=== PATIENT | male | born 1980 | race Caucasian/White ===

== ENCOUNTER 2016-09-04 13:06 | Emergency (ER) | payer MEDICARE, MEDICAID ==
[~2016-09-04] VITALS: Ht 172.7 cm; Wt 101.6 kg
[~2016-09-04 13:06] MED LIST: ALLO100T30 PO; AMOX1TAB12 PO; ARIP5TAB6 PO; CIPR500T3 PO; CYCL10TA50 PO; DIPH1TAB PO; DIPH25CA61 PO; DIVA250T PO; FLUO40CA2 PO; IBUP200T48 PO; IMIP50TA3 PO; LEVO7.5T PO; LISI-170 PO; MELO-184 PO; METO25TA91 PO; MOME13HF; MOME13HF INH; NITR50CA PO; OMEP-110 PO; PRAV40TA2 PO; PROM12.554 PR; QUET100T PO; SITA1TBM4 PO; VALP250C PO
[2016-09-04] MEDS ORDERED: TRAM50TA2 PO (13:39)
[2016-09-04] MEDS ORDERED: SUMA100T3 PO (13:39)
[2016-09-04] MEDS ORDERED: METO25TA91 PO (13:40)
[2016-09-04] MEDS ORDERED: SODIUM CHLORIDE FLUSH 10ML SYR IVF ONE (14:00)
[2016-09-04 14:19] LABS: ASPARTATE AMINO TRANSFERASE 11 U/L (15-37); BLOOD UREA NITROGEN 27 mg/dL (7-18)
[2016-09-04 14:25] LABS: IS PT STATUS REG ER OR PRE ER? YES
[2016-09-04] MEDS ORDERED: KETOROLAC 30 MG/1 ML IVPush ONE (16:00)
[2016-09-04] MEDS ORDERED: KETOROLAC 30 MG/1 ML ONE (16:13)
[2016-09-04] MEDS ORDERED: OMNIPAQUE 350 MG/ML, 100ML BOTTLE ONE (16:27)
[2016-09-04 16:31] VITALS: BP 139/86
== END 2016-09-04 17:27 | disposition home or self-care (01) ==
LOC: ED 17:25
DX: S29.011A Strain of muscle and tendon of front wall of thorax, initial encounter (principal); M94.0 Chondrocostal junction syndrome [Tietze]; I10 Essential (primary) hypertension; E11.9 Type 2 diabetes mellitus without complications; X58.XXXA Exposure to other specified factors, initial encounter; Y93.89 Activity, other specified; Y92.89 Other specified places as the place of occurrence of the external cause; Y99.9 Unspecified external cause status
CPT/HCPCS: 36415; 71020; 71275; 80053; 84484; 85025; 85379; 85610; 85730; 93005; 96374; 99285; J1885; Q9967

== ENCOUNTER 2016-12-12 21:12 | Emergency (ER) | payer MEDICARE, MEDICAID ==
[~2016-12-12] VITALS: Ht 175.3 cm; Wt 98.0 kg
[~2016-12-12 21:12] MED LIST changes: +SUMA100T3 PO; +TRAM50TA2 PO
[2016-12-12 21:14] VITALS: BP 140/99
[2016-12-12 22:08] LABS: PATH.CAST-FLAG NOT PRESENT; SPERM-FLAG NOT PRESENT; SRC-FLAG NOT PRESENT; XTAL-FLAG NOT PRESENT; YLC-FLAG NOT PRESENT
== END 2016-12-12 22:33 | disposition home or self-care (01) ==
LOC: ED 22:20
DX: R33.9 Retention of urine, unspecified (principal); J44.9 Chronic obstructive pulmonary disease, unspecified; E11.9 Type 2 diabetes mellitus without complications; I10 Essential (primary) hypertension
CPT/HCPCS: 81001; 87086; 99284

== ENCOUNTER 2017-02-19 12:59 | Emergency (ER) | payer MEDICARE, MEDICAID ==
[~2017-02-19] VITALS: Ht 172.7 cm; Wt 103.0 kg
[~2017-02-19 12:59] MED LIST changes: +ARIP5TAB13 PO; -ARIP5TAB6 PO; -MELO-184 PO; +MELO15TA24 PO
[2017-02-19 13:02] VITALS: BP 146/96
== END 2017-02-19 15:34 | disposition home or self-care (01) ==
LOC: ED 14:26
DX: N30.00 Acute cystitis without hematuria (principal); J44.9 Chronic obstructive pulmonary disease, unspecified; G40.909 Epilepsy, unspecified, not intractable, without status epilepticus; E78.00 Pure hypercholesterolemia, unspecified; E11.65 Type 2 diabetes mellitus with hyperglycemia; I11.0 Hypertensive heart disease with heart failure; I50.9 Heart failure, unspecified
CPT/HCPCS: 51701; 81001; 87086; 99284; P9612

== ENCOUNTER 2017-02-24 20:20 | Emergency (ER) | payer MEDICARE, MEDICAID ==
[~2017-02-24] VITALS: Ht 172.7 cm; Wt 103.3 kg
[2017-02-24 21:16] VITALS: BP 135/74
== END 2017-02-24 21:20 | disposition home or self-care (01) ==
LOC: ED 21:10
DX: R30.0 Dysuria (principal); J44.9 Chronic obstructive pulmonary disease, unspecified; E11.9 Type 2 diabetes mellitus without complications; E78.5 Hyperlipidemia, unspecified; I10 Essential (primary) hypertension; Z86.711 Personal history of pulmonary embolism
CPT/HCPCS: 99281

== ENCOUNTER 2017-03-13 22:42 | Emergency (ER) | payer MEDICARE, MEDICAID ==
[~2017-03-13] VITALS: Ht 175.3 cm; Wt 103.0 kg
[2017-03-13 22:48] VITALS: BP 154/103
== END 2017-03-13 23:24 | disposition home or self-care (01) ==
LOC: ED 23:03
DX: R46.89 Other symptoms and signs involving appearance and behavior (principal); J44.9 Chronic obstructive pulmonary disease, unspecified; E11.9 Type 2 diabetes mellitus without complications; E78.5 Hyperlipidemia, unspecified; I10 Essential (primary) hypertension; Z86.711 Personal history of pulmonary embolism
CPT/HCPCS: 99283

== ENCOUNTER 2017-09-28 21:47 | Observation (INO) | payer MEDICARE, MEDICAID ==
[~2017-09-28] VITALS: Ht 175.3 cm; Wt 103.0 kg
[~2017-09-28 21:47] MED LIST changes: -IBUP200T48 PO; +IBUP200T49 PO
[2017-09-28] MEDS ORDERED: DIVA500T17 PO (22:02)
[2017-09-28 22:34] LABS: BASOPHILS # (AUTO) 0.02 x10^3/uL (0-0.1); BASOPHILS % (AUTO) 0 % (0-1); EOSINOPHILS # (AUTO) 0.07 x10^3/uL (0-0.4); EOSINOPHILS % (AUTO) 1 % (1-7); LYMPHOCYTES % (AUTO) 23 % (22-44); MD NO; MEAN CORPUSCULAR HGB CONC 33.9 g/dL (33.2-36.2); MEAN CORPUSCULAR VOLUME 88.4 fL (81-97); MEAN PLATELET VOLUME 7.9 fL (7.4-10.4); MONOCYTES # (AUTO) 0.87 x10^3/uL (0.2-0.8); MONOCYTES % (AUTO) 10 % (2-9); NEUTROPHILS # (AUTO) 5.48 x10^3/uL (1.8-6.8); NEUTROPHILS % (AUTO) 66 % (42-75); PLATELET COUNT 269 x10^3/uL (130-400); RED BLOOD COUNT 4.97 x10^6/uL (4.38-5.82); RED CELL DISTRIBUTION WIDTH 14.9 % (9.4-14.8)
[2017-09-28 22:41] LABS: ALBUMIN 3.7 g/dL (3.4-5.0); ANION GAP 10 mmol/L (5-15); CALCIUM 8.2 mg/dL (8.5-10.1); CHLORIDE 102 mmol/L (98-107); CREATININE 1.11 mg/dL (0.7-1.3)
[2017-09-28 22:42] LABS: SALICYLATE LEVEL < 1.7 mg/dL (2.8-20.0)
[2017-09-28 22:43] LABS: ACETAMINOPHEN < 2 mcg/mL (10-30)
[2017-09-28 23:23] LABS: AMPHETAMINE SCREEN, URINE Negative (Negative); BARBITURATE SCREEN, URINE Negative (Negative); BENZODIAZEPINE SCREEN, URINE Negative (Negative); CANNABINOID SCREEN, URINE Negative (Negative); COCAINE SCREEN, URINE Negative (Negative); METHADONE SCREEN, URINE Negative (Negative); OPIATE SCREEN, URINE Negative (Negative)
[2017-09-29] MEDS ORDERED: ONDANSETRON ODT 4 MG PO PRN (00:30)
[2017-09-29] MEDS ORDERED: DOCUSATE 100 MG CAPSULE PO PRN (00:30)
[2017-09-29] MEDS ORDERED: METOPROLOL SUCCINATE 25 MG TAB.ER.24H PO PRN (00:30)
[2017-09-29] MEDS ORDERED: DIPHENHYDRAMINE 50 MG CAPSULE PO PRN (00:30)
[2017-09-29] MEDS ORDERED: ACETAMINOPHEN 325 MG TABLET PO PRN (00:30)
[2017-09-29] MEDS: INSULIN LISPRO 100 UNITS/ML, PEN SQ-INSULIN SCH ×4 (07:00→21:00)
[2017-09-29 07:20] VITALS: BP 137/82
[2017-09-29] MEDS: metFORMIN 500 MG TABLET PO SCH ×2 (07:36→16:26)
[2017-09-29] MEDS: DIVALPROEX 500 MG TAB.ER.24H PO SCH ×2 (07:36→21:25)
[2017-09-29] MEDS: QUETIAPINE 100MG TABLET PO SCH (07:37)
[2017-09-29] MEDS: FLUOXETINE HCL 20 MG CAPSULE PO SCH (07:37)
[2017-09-29] MEDS: SITAGLIPTIN 50MG TABLET PO SCH ×2 (07:37→16:26)
[2017-09-29] MEDS: FLUTICASONE/VILANTEROL 200-25MCG/INH INH SCH (08:32)
[2017-09-29] MEDS ORDERED: SITAGLIPTIN 50MG TABLET PO SCH (09:00)
[2017-09-29 19:12] VITALS: BP 127/91
[2017-09-29 21:37] LABS: CLOSTRIDIUM DIFFICILE ANTIGEN NEGATIVE; CLOSTRIDIUM DIFFICILE TOXIN NEGATIVE (Negative)
[2017-09-30] MEDS: INSULIN LISPRO 100 UNITS/ML, PEN SQ-INSULIN SCH ×2 (07:00→11:00)
[2017-09-30 07:58] VITALS: BP 139/92
[2017-09-30] MEDS: FLUTICASONE/VILANTEROL 200-25MCG/INH INH SCH (07:58)
[2017-09-30] MEDS: DIVALPROEX 500 MG TAB.ER.24H PO SCH (07:59)
[2017-09-30] MEDS: QUETIAPINE 100MG TABLET PO SCH (07:59)
[2017-09-30] MEDS: metFORMIN 500 MG TABLET PO SCH (07:59)
[2017-09-30] MEDS: SITAGLIPTIN 50MG TABLET PO SCH (07:59)
[2017-09-30] MEDS: FLUOXETINE HCL 20 MG CAPSULE PO SCH (07:59)
== END 2017-09-30 16:45 ==
LOC: ED 22:45 → SUATTDRO 09-29 00:19 → INTOOBSV 09-29 01:31 → EDIP 09-29 01:31 → 3E 09-29 01:33
PROVIDERS: ADMIT Family Medicine; ATTEND Family Medicine
DX: F32.9 Major depressive disorder, single episode, unspecified (principal); I10 Essential (primary) hypertension; N31.9 Neuromuscular dysfunction of bladder, unspecified; K21.9 Gastro-esophageal reflux disease without esophagitis; F09 Unspecified mental disorder due to known physiological condition; E78.5 Hyperlipidemia, unspecified; E11.9 Type 2 diabetes mellitus without complications; G40.909 Epilepsy, unspecified, not intractable, without status epilepticus; J44.9 Chronic obstructive pulmonary disease, unspecified; M10.9 Gout, unspecified
CPT/HCPCS: 36415; 80048; 80307; 80329; 82040; 82962; 85025; 87324; 99285; G0378; G0480

== ENCOUNTER 2017-11-28 14:38 | Emergency (ER) | payer MEDICARE, MEDICAID ==
[~2017-11-28] VITALS: Ht 175.3 cm; Wt 97.7 kg
[~2017-11-28 14:38] MED LIST changes: +DIVA500T17 PO
[2017-11-28] MEDS ORDERED: ASPIRIN 81 MG TABLET CHEW PO ONE (15:00)
[2017-11-28] MEDS ORDERED: NITROGLYCERIN SINGLE TAB 0.4 MG SL PRN (15:00)
[2017-11-28 15:18] LABS: ALANINE AMINOTRANSFERASE 40 U/L (12-78); ANION GAP 9 mmol/L (5-15); CHLORIDE 103 mmol/L (98-107); CREATININE 1.28 mg/dL (0.7-1.3)
[2017-11-28 15:23] LABS: ALKALINE PHOSPHATASE 58 U/L (45-117); BILIRUBIN,TOTAL 0.4 mg/dL (0.2-1.0); TOTAL PROTEIN 8.1 g/dL (6.4-8.2); TROPONIN I < 0.015 ng/mL (0.000-0.045)
[2017-11-28 16:01] LABS: BASOPHILS # (AUTO) 0.04 x10^3/uL (0-0.1); BASOPHILS % (AUTO) 0 % (0-1); EOSINOPHILS # (AUTO) 0.17 x10^3/uL (0-0.4); EOSINOPHILS % (AUTO) 2 % (1-7); LYMPHOCYTES # (AUTO) 1.73 x10^3/uL (1-3.4); LYMPHOCYTES % (AUTO) 17 % (22-44); MD SCAN; MEAN CORPUSCULAR HEMOGLOBIN 30.4 pg (27.5-34.5); MEAN CORPUSCULAR HGB CONC 34.3 g/dL (33.2-36.2); MEAN CORPUSCULAR VOLUME 88.4 fL (81-97); MEAN PLATELET VOLUME 8.8 fL (7.4-10.4); MONOCYTES # (AUTO) 0.82 x10^3/uL (0.2-0.8); MONOCYTES % (AUTO) 8 % (2-9); NEUTROPHILS # (AUTO) 7.22 x10^3/uL (1.8-6.8); NEUTROPHILS % (AUTO) 72 % (42-75); PLATELET COUNT 213 x10^3/uL (130-400); RED BLOOD COUNT 5.02 x10^6/uL (4.38-5.82); RED CELL DISTRIBUTION WIDTH 14.4 % (9.4-14.8)
[2017-11-28] MEDS ORDERED: ASPIRIN 81 MG TABLET CHEW ONE (16:57)
[2017-11-28] MEDS ORDERED: OMNIPAQUE 350 MG/ML, 100ML BOTTLE ONE (18:22)
[2017-11-28 18:38] VITALS: BP 137/91
== END 2017-11-28 19:27 | disposition home or self-care (01) ==
LOC: ED 18:45
DX: R07.89 Other chest pain (principal); G40.909 Epilepsy, unspecified, not intractable, without status epilepticus; J44.9 Chronic obstructive pulmonary disease, unspecified; I10 Essential (primary) hypertension; E11.65 Type 2 diabetes mellitus with hyperglycemia; E78.5 Hyperlipidemia, unspecified; Z86.711 Personal history of pulmonary embolism
CPT/HCPCS: 36415; 71045; 71275; 80053; 84484; 85025; 93005; 99285; Q9967

== ENCOUNTER 2018-05-03 21:42 | Emergency (ER) | payer MEDICARE, MEDICAID ==
[~2018-05-03] VITALS: Ht 175.3 cm; Wt 102.0 kg
[2018-05-03 22:24] LABS: BASOPHILS # (AUTO) 0.03 x10^3/uL (0-0.1); BASOPHILS % (AUTO) 1 % (0-1); EOSINOPHILS # (AUTO) 0.17 x10^3/uL (0-0.4); EOSINOPHILS % (AUTO) 3 % (1-7); LYMPHOCYTES # (AUTO) 1.36 x10^3/uL (1-3.4); LYMPHOCYTES % (AUTO) 20 % (22-44); MD NO; MEAN CORPUSCULAR HEMOGLOBIN 30.5 pg (27.5-34.5); MEAN CORPUSCULAR HGB CONC 34.4 g/dL (33.2-36.2); MEAN CORPUSCULAR VOLUME 88.6 fL (81-97); MEAN PLATELET VOLUME 7.5 fL (7.4-10.4); MONOCYTES # (AUTO) 0.53 x10^3/uL (0.2-0.8); MONOCYTES % (AUTO) 8 % (2-9); NEUTROPHILS # (AUTO) 4.63 x10^3/uL (1.8-6.8); NEUTROPHILS % (AUTO) 69 % (42-75); PLATELET COUNT 260 x10^3/uL (130-400); RED BLOOD COUNT 4.53 x10^6/uL (4.38-5.82); RED CELL DISTRIBUTION WIDTH 14.3 % (9.4-14.8)
[2018-05-03 22:31] LABS: ALANINE AMINOTRANSFERASE 28 U/L (12-78); ALBUMIN 3.4 g/dL (3.4-5.0); ANION GAP 7 mmol/L (5-15); CALCIUM 8.2 mg/dL (8.5-10.1); CHLORIDE 104 mmol/L (98-107); CREATININE 1.04 mg/dL (0.7-1.3)
[2018-05-03 22:34] LABS: ALKALINE PHOSPHATASE 54 U/L (45-117); BILIRUBIN,TOTAL 0.3 mg/dL (0.2-1.0); TOTAL PROTEIN 6.9 g/dL (6.4-8.2)
--- NOTE | 2018-05-03 22:36 | NUR ---
RESTING QUIETLY, NAD AT THIS TIME AND PT HAS NO COMPLAINTS, SIDE RAILS UP TIMES TWO, CALL DO IN REACH AND AWARE OF USE AND MORE WARM BLANKETS GIVEN
--- NOTE | 2018-05-03 23:03 | NUR ---
MD NOTES GUIAC NEGATIVE AND NOTED SMALL HEMMORHOID.
[2018-05-03 23:21] VITALS: BP 116/73
--- NOTE | 2018-05-03 23:32 | NUR ---
[facility]AY CALLED PER PT REQUEST, AWARE OF FINDINGS AND ARE ON THE WAY TO PICK PT UP.
== END 2018-05-03 23:38 | disposition home or self-care (01) ==
LOC: ED 22:33
DX: K62.5 Hemorrhage of anus and rectum (principal); I10 Essential (primary) hypertension; E11.9 Type 2 diabetes mellitus without complications
CPT/HCPCS: 36415; 80053; 85025; 93005; 99284

== ENCOUNTER 2018-06-02 20:13 | Emergency (ER) | payer MEDICARE, MEDICAID ==
[~2018-06-02] VITALS: Ht 175.3 cm; Wt 95.0 kg
--- NOTE | 2018-06-02 20:27 | NUR ---
assessment made. chart up for MD to see.
--- NOTE | 2018-06-02 20:31 | NUR ---
Dr. Watts at bedside to evaluate pt.
--- NOTE | 2018-06-02 20:31 | NUR ---
SBAR report received from RN, Damian.
--- NOTE | 2018-06-02 20:43 | NUR ---
RN in to ask pt if he can provide urine sample. Pt states that he has a neurogenic bladder and self caths at home. Pt to imaging at this time, via anne. This RN to straight cath pt for urine sample upon return.
[2018-06-02 21:46] LABS: BASOPHILS % (AUTO) 0 % (0-1); EOSINOPHILS # (AUTO) 0.18 x10^3/uL (0-0.4); EOSINOPHILS % (AUTO) 3 % (1-7); LYMPHOCYTES # (AUTO) 1.68 x10^3/uL (1-3.4); LYMPHOCYTES % (AUTO) 29 % (22-44); MD NO; MEAN CORPUSCULAR HEMOGLOBIN 29.7 pg (27.5-34.5); MEAN CORPUSCULAR HGB CONC 33.6 g/dL (33.2-36.2); MEAN CORPUSCULAR VOLUME 88.3 fL (81-97); MEAN PLATELET VOLUME 7.9 fL (7.4-10.4); MONOCYTES # (AUTO) 0.76 x10^3/uL (0.2-0.8); MONOCYTES % (AUTO) 13 % (2-9); NEUTROPHILS # (AUTO) 3.21 x10^3/uL (1.8-6.8); NEUTROPHILS % (AUTO) 55 % (42-75); PLATELET COUNT 236 x10^3/uL (130-400); RED BLOOD COUNT 4.41 x10^6/uL (4.38-5.82)
[2018-06-02 21:49] LABS: ALBUMIN 3.6 g/dL (3.4-5.0); ANION GAP 10 mmol/L (5-15); CALCIUM 8.6 mg/dL (8.5-10.1); CHLORIDE 106 mmol/L (98-107)
[2018-06-02 21:52] LABS: ALANINE AMINOTRANSFERASE 26 U/L (12-78); ALKALINE PHOSPHATASE 49 U/L (45-117); BILIRUBIN,TOTAL 0.4 mg/dL (0.2-1.0); CREATININE 1.04 mg/dL (0.7-1.3); TOTAL PROTEIN 6.8 g/dL (6.4-8.2)
--- NOTE | 2018-06-02 21:54 | NUR ---
Dr. Watts at bedside to discuss ED findings and POC.
--- NOTE | 2018-06-02 21:55 | NUR ---
Straight cath performed for urine sample, pt tolerated the procedure well. Sample walked to lab.
[2018-06-02 22:07] LABS: CULTURE INDICATED? YES; MICROSCOPIC INDICATED
--- NOTE | 2018-06-02 22:28 | NUR ---
Pt requesting that d/c information be repeated when caregiver arrives.
[2018-06-02] MEDS ORDERED: FOSFOMYCIN 3 GM PACKET PO ONE (22:30)
--- NOTE | 2018-06-02 22:30 | NUR ---
Caregiver, and ride home, called as pt is to be discharged.
--- NOTE | 2018-06-02 23:09 | NUR ---
Pt medicated, per JUN. Caregiver back to bedside and d/c information reviewed with caregiver and pt.
[2018-06-02 23:10] VITALS: BP 117/70
--- NOTE | 2018-06-02 23:34 | NUR ---
Patient/Caregiver given discharge instructions and they have confirmed that they understand the instructions. Patient ambulatory with steady gait.
== END 2018-06-02 23:35 | disposition home or self-care (01) ==
LOC: ED 20:44
DX: K80.20 Calculus of gallbladder without cholecystitis without obstruction (principal); G40.909 Epilepsy, unspecified, not intractable, without status epilepticus; J44.9 Chronic obstructive pulmonary disease, unspecified; E11.9 Type 2 diabetes mellitus without complications; E78.5 Hyperlipidemia, unspecified; I10 Essential (primary) hypertension
CPT/HCPCS: 36415; 74021; 76700; 80053; 81001; 83605; 83690; 85025; 87086; 99284

== ENCOUNTER 2020-10-22 19:57 | Inpatient (IN) | payer MEDICARE, MEDICAID ==
[~2020-10-22] VITALS: Ht 175.3 cm; Wt 101.4 kg
[~2020-10-22 19:57] MED LIST changes: -CIPR500T3 PO; +CIPR500T4 PO; -QUET100T PO; +QUET100T2 PO
[2020-10-22 21:16] LABS: BASOPHILS % (AUTO) 1 % (0-1); EOSINOPHILS % (AUTO) 3 % (1-7); LYMPHOCYTES % (AUTO) 25 % (22-44); MEAN CORPUSCULAR HEMOGLOBIN 30.1 pg (27.5-34.5); MEAN CORPUSCULAR HGB CONC 34.2 g/dL (33.2-36.2); MEAN PLATELET VOLUME 8.1 fL (7.4-10.4); MONOCYTES % (AUTO) 12 % (2-9); NEUTROPHILS % (AUTO) 60 % (42-75); PLATELET COUNT 220 x10^3/uL (130-400); RED BLOOD COUNT 4.81 x10^6/uL (4.38-5.82); RED CELL DISTRIBUTION WIDTH 14.7 % (9.4-14.8)
[2020-10-22 21:27] LABS: ANION GAP 6 mmol/L (5-15); CALCIUM 8.4 mg/dL (8.5-10.1); CHLORIDE 103 mmol/L (98-107); CREATININE 0.93 mg/dL (0.7-1.3)
[2020-10-22 21:30] LABS: TROPONIN I < 0.015 ng/mL (0.000-0.045)
--- NOTE | 2020-10-22 21:49 | NUR ---
ALL RESULTS ARE BACK AT THIS TIME. CHART UP FOR RECHECK.
[2020-10-22] MEDS ORDERED: LORazepam 1MG TABLET PO ONE (22:00)
[2020-10-22] MEDS ORDERED: LORazepam 1MG TABLET ONE (22:00)
--- NOTE | 2020-10-22 22:02 | NUR ---
POWER PRESS OPERATOR PER JUN. N/O FOR CTA.
--- NOTE | 2020-10-22 22:09 | NUR ---
18G PIV IN RIGHT HAND FLUSHES WELL WHEN FLUSHED QUICKLY. NOTIFIED CT OF ASSESSMENT.
--- NOTE | 2020-10-22 22:22 | NUR ---
PT GOING TO CT.
--- NOTE | 2020-10-22 22:45 | NUR ---
REPORT GIVEN TO JACOB RIVERA. TRANSFER OF CARE AT THIS TIME.
--- NOTE | 2020-10-22 22:46 | NUR ---
received report from MIGUEL Fraga
--- NOTE | 2020-10-22 23:20 | NUR ---
pt resting comfortably on gurney, denies needs at this time.
--- NOTE | 2020-10-23 | NUR ---
pt resting on gurney, denies needs at this time.
[2020-10-23] MEDS ORDERED: OMNIPAQUE 350 MG/ML, 100ML BOTTLE ONE (00:50)
--- NOTE | 2020-10-23 01:05 | NUR ---
pt's longterm address is [address]
[2020-10-23] MEDS ORDERED: ASPI-963 PO (01:09)
[2020-10-23] MEDS ORDERED: CETI-237 PO (01:24)
[2020-10-23] MEDS ORDERED: VIT D PO (01:24)
[2020-10-23] MEDS ORDERED: ALBU18HF INH (01:24)
--- NOTE | 2020-10-23 01:25 | NUR ---
THIS RN CALLED LUIS MEDEIROS, TO CLARIFY PT'S MED REQ.
--- NOTE | 2020-10-23 01:26 | NUR ---
Pt to be admitted to NEURO TELE, room 427-1. Report called to MIGUEL DEL REAL.
[2020-10-23] MEDS ORDERED: ACETAMINOPHEN 325 MG TABLET PO PRN (01:30)
[2020-10-23] MEDS ORDERED: ZOLPIDEM 5MG TABLET PO PRN (01:30)
[2020-10-23] MEDS ORDERED: LACTATED RINGERS 1,000 ML IV SCH (01:30)
[2020-10-23] MEDS ORDERED: METOPROLOL SUCCINATE 25 MG TAB.ER.24H PO PRN (01:30)
[2020-10-23] MEDS ORDERED: ALBUTEROL HFA 90 MCG/SPRAY INH SCH (01:30)
[2020-10-23] MEDS ORDERED: BACLOFEN 10 MG TABLET PO PRN (01:30)
[2020-10-23] MEDS ORDERED: ENALAPRILAT 1.25 MG/ML, 2ML IVPush PRN (01:30)
[2020-10-23] MEDS ORDERED: ONDANSETRON 2MG/ML, 2ML IVPush PRN (01:30)
[2020-10-23] MEDS ORDERED: DOCUSATE 100 MG CAPSULE PO PRN (01:30)
[2020-10-23] MEDS ORDERED: OXYcodone IR 5MG TABLET PO PRN (01:30)
[2020-10-23] MEDS ORDERED: GUAIFENESIN/DM 200-20MG, 10ML UDC PO PRN (01:30)
[2020-10-23] MEDS ORDERED: ALBUTEROL SULFATE 2.5MG/0.5ML NPPB SCH (02:00)
[2020-10-23 02:19] VITALS: BP 132/81
[2020-10-23] MEDS: ENOXAPARIN 40 MG/0.4 ML SQ SCH ×2 (02:52→20:45)
[2020-10-23 03:30] LABS: BASOPHILS % (AUTO) 1 % (0-1); EOSINOPHILS % (AUTO) 2 % (1-7); LYMPHOCYTES % (AUTO) 26 % (22-44); MEAN CORPUSCULAR HEMOGLOBIN 29.8 pg (27.5-34.5); MEAN CORPUSCULAR HGB CONC 34.1 g/dL (33.2-36.2); MEAN PLATELET VOLUME 8.1 fL (7.4-10.4); MONOCYTES % (AUTO) 11 % (2-9); NEUTROPHILS % (AUTO) 61 % (42-75); PLATELET COUNT 182 x10^3/uL (130-400); RED BLOOD COUNT 4.88 x10^6/uL (4.38-5.82); RED CELL DISTRIBUTION WIDTH 14.7 % (9.4-14.8)
[2020-10-23] MEDS ORDERED: PLEASE ENTER HEIGHT MC SCH (03:30)
[2020-10-23 03:36] LABS: ANION GAP 10 mmol/L (5-15); CALCIUM 8.5 mg/dL (8.5-10.1); CHLORIDE 105 mmol/L (98-107)
[2020-10-23 03:46] LABS: CREATININE 0.97 mg/dL (0.7-1.3); TROPONIN I < 0.015 ng/mL (0.000-0.045)
[2020-10-23] MEDS ORDERED: ALBUTEROL SULFATE 2.5 MG/3 ML NPPB SCH (07:00)
[2020-10-23] MEDS ORDERED: ALBUTEROL SULFATE 2.5 MG/3 ML ONE (07:39)
[2020-10-23] MEDS ORDERED: SITAGLIPTIN PHOS PO SCH (09:00)
[2020-10-23] MEDS ORDERED: [UNRECOGNIZED DRUG - OTHER] PO SCH (09:00)
[2020-10-23] MEDS ORDERED: VIT D PO SCH (09:00)
[2020-10-23] MEDS ORDERED: METFORMIN HCL PO SCH (09:00)
[2020-10-23 09:20] LABS: TROPONIN I < 0.015 ng/mL (0.000-0.045)
[2020-10-23 09:26] VITALS: BP 113/96
[2020-10-23] MEDS: CETIRIZINE 10 MG TABLET PO SCH (09:29)
[2020-10-23] MEDS: ASPIRIN 81 MG TABLET EC PO SCH (09:29)
[2020-10-23] MEDS: DIVALPROEX 500 MG TAB.ER.24H PO SCH ×2 (09:29→20:45)
[2020-10-23 14:06] VITALS: BP 130/80
[2020-10-23] MEDS ORDERED: ALBUTEROL SULFATE 2.5 MG/3 ML NPPB PRN (14:30)
[2020-10-23] MEDS ORDERED: OMNIPAQUE 350 MG/ML, 75ML BOTTLE ONE (15:40)
[2020-10-23] MEDS: SODIUM CHLORIDE 0.9% 1,000 ML IV SCH (18:04)
[2020-10-23] MEDS: INSULIN LISPRO 100 UNITS/ML, PEN SQ-INSULIN SCH ×2 (18:06→21:00)
[2020-10-23 20:42] VITALS: BP 142/90
[2020-10-23 21:37] LABS: MICROSCOPIC AUTO
[2020-10-24 02:08] VITALS: BP 136/94
[2020-10-24] MEDS: SODIUM CHLORIDE 0.9% 1,000 ML IV SCH (04:00)
[2020-10-24 04:38] LABS: BASOPHILS % (AUTO) 0 % (0-1); EOSINOPHILS % (AUTO) 0 % (1-7); LYMPHOCYTES % (AUTO) 7 % (22-44); MEAN CORPUSCULAR HGB CONC 34.2 g/dL (33.2-36.2); MEAN PLATELET VOLUME 8.1 fL (7.4-10.4); MONOCYTES % (AUTO) 4 % (2-9); NEUTROPHILS % (AUTO) 89 % (42-75); PLATELET COUNT 228 x10^3/uL (130-400); RED BLOOD COUNT 4.99 x10^6/uL (4.38-5.82); RED CELL DISTRIBUTION WIDTH 14.6 % (9.4-14.8)
[2020-10-24 04:40] LABS: ANION GAP 11 mmol/L (5-15); CALCIUM 8.9 mg/dL (8.5-10.1); CHLORIDE 104 mmol/L (98-107); CREATININE 0.85 mg/dL (0.7-1.3)
[2020-10-24 07:13] VITALS: BP 124/82
[2020-10-24] MEDS: METOPROLOL SUCCINATE 25 MG TAB.ER.24H PO SCH (07:33)
[2020-10-24] MEDS: INSULIN LISPRO 100 UNITS/ML, PEN SQ-INSULIN SCH ×4 (08:35→20:18)
[2020-10-24] MEDS: ASPIRIN 81 MG TABLET EC PO SCH (09:37)
[2020-10-24] MEDS: CETIRIZINE 10 MG TABLET PO SCH (09:37)
[2020-10-24] MEDS: DIVALPROEX 500 MG TAB.ER.24H PO SCH ×2 (09:37→20:17)
[2020-10-24 13:01] LABS: AMPHETAMINE SCREEN, URINE Negative (Negative); BARBITURATE SCREEN, URINE Negative (Negative); BENZODIAZEPINE SCREEN, URINE Negative (Negative); CANNABINOID SCREEN, URINE Negative (Negative); COCAINE SCREEN, URINE Negative (Negative); METHADONE SCREEN, URINE Negative (Negative); OPIATE SCREEN, URINE Negative (Negative)
[2020-10-24 13:36] VITALS: BP 126/76
[2020-10-24] MEDS: ENOXAPARIN 40 MG/0.4 ML SQ SCH (20:17)
[2020-10-24 20:22] VITALS: BP 131/87
[2020-10-25 00:03] VITALS: BP 121/85
[2020-10-25 00:05] LABS: TROPONIN I < 0.015 ng/mL (0.000-0.045)
[2020-10-25] MEDS: METOPROLOL SUCCINATE 25 MG TAB.ER.24H PO SCH (06:00)
[2020-10-25] MEDS: INSULIN LISPRO 100 UNITS/ML, PEN SQ-INSULIN SCH ×4 (07:00→22:24)
[2020-10-25 07:53] VITALS: BP 132/91
[2020-10-25] MEDS: DIVALPROEX 500 MG TAB.ER.24H PO SCH ×2 (11:22→20:49)
[2020-10-25] MEDS ORDERED: REGADENOSON 0.4 MG/5 ML SYRINGE ONE (12:18)
[2020-10-25 13:34] VITALS: BP 126/89
[2020-10-25] MEDS: ASPIRIN 81 MG TABLET EC PO SCH (15:01)
[2020-10-25] MEDS: CETIRIZINE 10 MG TABLET PO SCH (15:01)
[2020-10-25 19:03] VITALS: BP 129/86
[2020-10-25] MEDS ORDERED: HALOPERIDOL 5 MG/ML ONE (21:16)
[2020-10-25] MEDS: ENOXAPARIN 40 MG/0.4 ML SQ SCH (21:23)
[2020-10-25] MEDS ORDERED: HALOPERIDOL 5 MG/ML IM ONE (21:30)
[2020-10-26 00:09] VITALS: BP 132/87
[2020-10-26 05:37] VITALS: BP 139/92
[2020-10-26] MEDS: METOPROLOL SUCCINATE 25 MG TAB.ER.24H PO SCH (05:40)
[2020-10-26 06:46] VITALS: BP 131/91
[2020-10-26] MEDS: INSULIN LISPRO 100 UNITS/ML, PEN SQ-INSULIN SCH ×2 (07:00→12:13)
[2020-10-26] MEDS: CETIRIZINE 10 MG TABLET PO SCH (07:59)
[2020-10-26] MEDS: ASPIRIN 81 MG TABLET EC PO SCH (07:59)
[2020-10-26] MEDS: DIVALPROEX 500 MG TAB.ER.24H PO SCH (08:00)
[2020-10-26 12:34] VITALS: BP 114/83
== END 2020-10-26 13:53 | disposition home or self-care (01) | DRG 880 ==
LOC: ED 23:43 → EDIP 10-23 00:23 → 4WST 10-23 02:47 → 4EST 10-24 14:49
PROVIDERS: ADMIT Internal Medicine; ATTEND Internal Medicine
PROC: 0T9B70Z Drainage of Bladder with Drainage Device, Via Natural or Artificial Opening (ICD-10-PCS; principal; 2020-10-23)
DX: F41.9 Anxiety disorder, unspecified (principal); R45.851 Suicidal ideations; R06.02 Shortness of breath; K21.9 Gastro-esophageal reflux disease without esophagitis; F32.9 Major depressive disorder, single episode, unspecified; E11.65 Type 2 diabetes mellitus with hyperglycemia; R11.2 Nausea with vomiting, unspecified; J45.909 Unspecified asthma, uncomplicated; I10 Essential (primary) hypertension; R07.89 Other chest pain; E78.5 Hyperlipidemia, unspecified; Z98.2 Presence of cerebrospinal fluid drainage device; Z86.711 Personal history of pulmonary embolism; Z83.3 Family history of diabetes mellitus; Q05.9 Spina bifida, unspecified; Z82.49 Family history of ischemic heart disease and other diseases of the circulatory system; Z80.3 Family history of malignant neoplasm of breast; Z87.440 Personal history of urinary (tract) infections; Z79.899 Other long term (current) drug therapy
CPT/HCPCS: 36415; 71045; 71275; 78452; 80048; 80307; 81001; 82962; 84443; 84484; 85025; 85379; 93005; 93017; 93306; 93970; 94640; 99285; G0378; J1650; J2405; J2785; J7613; Q9967; A9502; J1630; J1815; J7030; J7120; J7512